=== PATIENT | male | born 1955 | race Caucasian/White ===

== ENCOUNTER → 2025-01-09 | Outpatient (CLI) | payer MEDICARE, MEDICAID, SELFPAY ==
--- NOTE | 2025-01-09 07:45 | US_ITS ---
PROCEDURE: ABD LIMITED W/ ELASTOGRAPHY REASON FOR EXAM: FATTY LIVER COMPARISON: None. TECHNIQUE: Right upper quadrant abdominal ultrasound. ElastQ Imaging shear wave elastography for non-invasive assessment of liver tissue stiffness. Limited study due to bowel gas, constipation, and general patient condition. FINDINGS: LIVER: Size: Unremarkable Length: 16.7 cm Echotexture: Coarsened. Heterogeneous Contour: Normal Lesions: None identified Blood flow: Hepatopetal. Elastography: EQI Med: 11.5 kPa EQI Med Anderson: 1.92 m/s GALLBLADDER: Normal COMMON BILE DUCT: Not visualized. . PANCREAS: Not visualized. Right kidney: Size measures 10.44 x 5.06 x 5.80 cm. Cortex measures 1.37 cm. Anechoic nodule laterally measuring 2.0 x 1.6 x 1.7 cm. US/ABD Limited w/ Elastography IMPRESSION: 1. F 2 to F 3, moderate to severe likelihood of clinically significant fibrosi s. 2. Coarse, heterogeneous hepatic texture. 3. Steatosis. 4. Right renal cyst. Reference Values: SRU <1.37 m/s (5.7kPa): No to mild fibrosis 1.37 m/s - 2.2 m/s: Moderate to severe fibrosis >2.2 m/s (15kPa): Significant fibrosis / cirrhosis METAVIR Score F2 or higher: 1.34 m/s (5.7kPa) F3 or higher: 1.55 m/s (7.3kPa) F4: 1.80 m/s (10kPa) * If the IQR/Med is >30%, the variance in the measurements is a large and the a ccuracy of the measurement may be in question. Reading Location: [id number]
== END | disposition home or self-care (01) ==
PROVIDERS: PCP Internal Medicine; Referring Provider Student in an Organized Health Care Education/Training Program; Visit Provider Student in an Organized Health Care Education/Training Program
DX: K76.0 Fatty (change of) liver, not elsewhere classified (principal)
CPT/HCPCS: 76705; 76981